=== PATIENT | female | born 1970 | race Caucasian/White ===

== ENCOUNTER 2016-09-27 11:07 | Inpatient (IN) | payer BC, MEDICARE ==
--- NOTE | ~2016-09-27 | HP ---
History And Physical [place] [id number] [place]. [address] NAME: RACHEL GORDON : 74 STATUS : ADM IN [facility]#: [id number] AGE: 46 ADM/REG DATE : 09/27/16 MR#: [id number] REPORT SERV DATE: 09/27/16 DICTATED BY: ELIDA WALLER II DATE: 09/27/16 REPORT STATUS : Draft TRANSCRIBED BY: MODL DATE: 09/27/16 DATE OF ADMISSION: 09/27/2016 PRIMARY ONCOLOGIST: Dr. Fisher. CHIEF COMPLAINT: Severe abdominal pain. 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 She started noticing a few weeks ago, pain in her right upper quadrant, though considered to be secondary to chemotherapy. Over the last week, she has had pain in her right upper quadrant as well as upper abdomen that has become more and more severe, now prompting her to come to the ER as her pain is uncontrollable. She denies any diarrhea, but has had worsening appetite, nausea, one episode of emesis a week ago, but has had minimal p.o. intake over the last week. Her abdominal pain is fairly constant and most severe in the right upper quadrant. In the ER, CT scan revealed moderate ascites throughout the abdomen and pelvis. Also findings concerning for carcinomatosis. The patient was also recently evaluated on at [facility] with similar symptoms, though had apparently complained of chest pain at that point in time, and a CTA was done without any notable abnormality. Lab workup was mostly unremarkable except for about 75 white cells in her urine, and she was given Macrobid. REVIEW OF SYSTEMS: Significant for some shortness of breath with pain and pain within deep inspiration. Anorexia, weight loss, weakness, fatigue. Negative for melena, hematochezia, cough, fevers, chills, dizziness, or blurry vision. Otherwise, 10-point review of systems is negative except for HPI. PAST MEDICAL HISTORY: 1. 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 Fisher, status post chemo and radiation. 2. Ulcerative colitis, status post colectomy and ileostomy. 3. Chronic fatigue syndrome. 4. Fibromyalgia. 5. TAA. 6. Deep venous thrombosis, on Eliquis. 7. Gastroesophageal reflux disease. 8. Chronic anemia. 9. Hypertension. 10.Primary sclerosing cholangitis. 11.Fatty liver disease. PAST SURGICAL HISTORY: Left hand reconstruction, arthroscopic knee surgery, subtotal colectomy, lumpectomy for benign findings, arthroscopic right wrist surgery, eye surgery, History And Physical [address] [address] NAME: RACHEL GORDON : 74 STATUS : ADM IN PAT#: [id number] AGE: 46 ADM/REG DATE : 09/27/16 MR#: [id number] REPORT SERV DATE: 09/27/16 DICTATED BY: ELIDA WALLER II DATE: 09/27/16 REPORT STATUS : Draft TRANSCRIBED BY: CELIA DATE: 09/27/16 colonoscopy. ALLERGIES: SULFA, SHELLFISH, IRON. FAMILY HISTORY: Significant for maternal grandmother with breast and ovarian cancer. SOCIAL HISTORY: The patient is . Lives with her . Daughter was 14. 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 Denies any alcohol, tobacco, or drug use. PHYSICAL EXAMINATION: VITAL SIGNS: Blood pressure 141/104, temperature 98.2, pulse 120, respirations 31, O2 saturation 93% on room air. GENERAL: The patient is alert and oriented x3, in no acute distress. NECK: Supple. Nontender. No lymphadenopathy or thyromegaly. HEENT: Moist mucous membranes. Pupils are equal, round, and reactive to light. Conjunctivae clear. RESPIRATORY: Lungs are clear to auscultation bilaterally. No wheezes, rhonchi, or rales. CARDIOVASCULAR: Regular rate and rhythm. No murmurs, rubs, or gallops. ABDOMEN: Mildly distended with tenderness to palpation in the right upper epigastric and left upper quadrant. Mild guarding. Normoactive bowel sounds. EXTREMITIES: No cyanosis, clubbing, or edema. SKIN: No lesions, rashes, or wounds. NEURO: No focal deficits. LABORATORY DATA: Sodium 139, potassium 3.8, chloride 101, CO2 25, BUN 6, creatinine 1.04, calcium 9.2, magnesium 1.8, total protein 6.9, albumin 2.4, T-bilirubin 0.9, alkaline phosphatase 228, ALT 16, AST 29, lipase 79. Troponin less than 0.02. WBC 9.4, hemoglobin 11.2, platelets 550. INR 1.7. Lactic 2.3. Urinalysis with small leukocyte esterase, 9 rbc's, 30 wbc's. RADIOGRAPHIC DATA: CT of the abdomen and pelvis shows moderate ascites throughout the abdomen and pelvis. There is nodularity of the peritoneal surface adjacent to the liver and the pericolic gutters. There was also nodular soft tissue thickening throughout the left lower quadrant mesentery extending into the pelvis and forming a conglomerate mass-like area in the spectral region of the rectum/mesorectal fat measuring up to 6.4 x 7.1 cm concerning for extensive carcinomatosis. Findings are new since 09/27/2015. There is also a perifissural nodule along the major fissure in the right measuring up to 5 x 7 mm. This was not present on previous exam and could possibly represent a metastatic lesion. Otherwise hepatic steatosis. ASSESSMENT AND PLAN: The patient is a 46-year-old female with, 1. Severe abdominal pain, which has been slowly progressing concerning for progression of disease. We will control with IV Dilaudid and provide supportive care. 2. Ascites possibly malignant, though the patient does have some history of fatty liver. We will plan a paracentesis on Thursday for further evaluation. 3. History of T3 N1 M0 rectal adenocarcinoma with radiographic findings concerning for extensive carcinomatosis. We will consult [facility] for further History And Physical [address] [address] NAME: RACHEL GORDON : 74 STATUS : ADM IN [facility]#: [id number] AGE: 46 ADM/REG DATE : 09/27/16 MR#: [id number] REPORT SERV DATE: 09/27/16 DICTATED BY: ELIDA WALLER II DATE: 09/27/16 REPORT STATUS : Draft TRANSCRIBED BY: MODHeber DATE: 09/27/16 recommendations. 4. Deep venous thrombosis, on Eliquis. Will hold Eliquis and start Lovenox in anticipation of procedure on Thursday. 5. Ulcerative colitis, status post ileostomy. 6. Hypertension, p.r.n. hydralazine. 7. Fibromyalgia. 8. Primary sclerosing cholangitis with mildly elevated alkaline phosphatase. We will continue to monitor. 9. Recent urinary tract infection. Prescribed Macrobid. White blood cell count on urinalysis a few days ago at [facility] was 75, currently down to 30, likely responding, so we will continue Macrobid. 10.The patient is a full code. MARIANA/CELIA Elida Waller II, MD / [id number] CC: MD Shena Mckeon II, M.D.
--- NOTE | ~2016-09-27 | DS ---
Discharge Summary [facility] [address] [place]. [address] NAME: RACHEL GORDON : 74 STATUS : DIS IN PAT#: [id number] AGE: 46 ADM/REG DATE : 09/27/16 MR#: [id number] REPORT SERV DATE: 10/07/16 DICTATED BY: JARROD JOHNSON DATE: 10/06/16 REPORT STATUS : Draft TRANSCRIBED BY: MODL DATE: 10/06/16 ADMISSION DATE: 09/27/2016 DISCHARGE DATE: 10/06/2016 CHIEF COMPLAINT ON ADMISSION: Severe abdominal pain. DISCHARGE DIAGNOSES: 1. Metastatic rectal cancer with peritoneal carcinomatosis. 2. Recurrent malignant ascites. 3. Abdominal pain. 4. Edema due to hypoalbuminemia and severe malnutrition. 5. History of deep vein thrombosis. 6. Sinus tachycardia. 7. Acute renal failure with right hydronephrosis. 8. Elevated lactate. 9. Acute renal failure. HISTORY OF PRESENT ILLNESS: Please see full H and P by Dr. Oren Villalobos for details regarding initial presentation. HOSPITAL COURSE: 1. Metastatic rectal cancer with new diagnosis of peritoneal carcinomatosis. The patient was admitted to the hospital. She was followed by Dr. Fisher who is her medical oncologist. Unfortunately, there is evidence on imaging that her cancer has progressed with peritoneal carcinomatosis. She did have ascites which was drained x2 this hospitalization. This fluid was positive for malignant cells on cytology. She will have a peritoneal catheter placed prior to discharge. She had 4.1 L of fluid removed off her abdomen on 09/29/2016, and then 3.7 removed off her abdomen on the 10/05/2016. She will be managed by hospice at discharge. The patient is adamant about going home today, and we will have hospice arranged. 2. Abdominal pain. This waxed and waned depending on the amount of fluid in her abdomen. Hopefully, this will be easier to control with a peritoneal catheter for fluid management. She will also be enrolled in hospice at discharge as mentioned above to help with pain control. 3. Lower extremity edema due to malnutrition and hypoalbuminemia. We did attempt albumin infusions with diuretics this hospitalization which were largely unsuccessful in managing her issues. 4. Deep vein thrombosis. The patient was on therapeutic anticoagulation, held for procedures; however, she can be managed with Eliquis at discharge per hospice input. 5. Sinus tachycardia due to pain. 6. Acute renal failure with right hydronephrosis. The patient has unfortunately, progression of her disease in addition to fluid accumulation in her abdomen which has caused compression of her bowel causing some elevated lactate as well as right hydronephrosis, resulting in some renal failure. This is improving after drainage of 3.7 L off her abdomen yesterday with creatinine today at 1.41, down from 1.78 yesterday. Again, she will be having a peritoneal catheter placed for fluid management Discharge Summary [place] [id number] [place]. [address] NAME: RACHEL GORDON : 74 STATUS : DIS IN PAT#: [id number] AGE: 46 ADM/REG DATE : 09/27/16 MR#: [id number] REPORT SERV DATE: 10/07/16 DICTATED BY: JARROD JOHNSON DATE: 10/06/16 REPORT STATUS : Draft TRANSCRIBED BY: MODL DATE: 10/06/16 per hospice at home. 7. Anemia. This is chronic. No acute bleeding noted. Likely related to underlying malignancy and possibly chemo. DISPOSITION: The patient will be discharged under the care of [facility] later today after peritoneal catheter placement and hospice has been arranged for home. DISCHARGE MEDICATIONS: Per hospice. PERTINENT LABORATORY DATA: White blood cell count 10.5, hemoglobin 8.4, and platelet count of 429. INR 1.1. BMP: Serum sodium 135, potassium 3.6, chloride 88, CO2 of 29, BUN 12, and creatinine 1.4. Total protein 5.5, albumin 2.8, total bilirubin 1.4. Most recent CT abdomen and pelvis with contrast. IMPRESSION: 1. Progressive peritoneal metastatic disease of the abdomen and pelvis since 09/27/2016 for metastatic colorectal cancer. 2. Npoeacymcy-tc-[id number] right lower lobe pulmonary metastases, now measures 11 x 9 mm. This nodule previously measured 6.6 x 5 mm in September. 3. Left lower lobe subsegmental atelectasis or pneumonia. 4. Moderate right hydroureteronephrosis due to extrinsic mass effect on the right distal ureter from peritoneal and pelvic metastatic disease. This is a new finding since 09/27/2016. CODE STATUS: Code status at this time is pending. Family is discussing. DISPOSITION: Home with [facility]. TIME SPENT ON DISCHARGE: Greater than 30 minutes. YURI/CELIA Jarrod Johnson MD / [id number]
[~2016-09-27 11:07] MED LIST: ACET500CAP PO; ENDOCET1 TAB PO; NATURA2 OPH; T PO
[2016-09-27 12:50] LABS: BASOPHILS 0.2 %; BASOPHILS ABSOLUTE 0.02 10/3/uL (0.0-0.16); EOSINOPHILS 1.4 %; EOSINOPHILS ABSOLUTE 0.13 10/3/uL (0.0-0.53); ER CBC TAT 0 Hrs 05 Mins; HEMOGLOBIN 11.2 g/dL (12.0-16.0); IMMATURE GRANULOCYTES 0.6 %; IMMATURE GRANULOCYTES ABSOLUTE 0.06 10/3/uL (0.0-0.11); LYMPHOCYTES ABSOLUTE 0.56 10/3/uL (0.67-4.30); MEAN CORPUS HGB CONC 32.1 g/dL (32.0-36.0); MEAN CORPUSCULAR HEMOGLOB 31.2 pg (26.0-34.0); MEAN PLATELET VOLUME 8.4 fL (9.2-13.0); MONOCYTES ABSOLUTE 0.75 10/3/uL (0.21-1.20); NEUTROPHILS 83.8 %; NEUTROPHILS ABSOLUTE 7.85 10/3/uL (2.02-8.40); RBC DISTRIBUTION WIDTH 16.6 % (12.0-16.0); RED CELL COUNT 3.59 10/6/uL (4.0-5.6); WHITE BLOOD CELLS 9.4 10/3/uL (4.5-10.5)
[2016-09-27 12:52] LABS: HEMATOCRIT 34.9 % (36.0-48.0); MANUAL DIFF NO %; MEAN CORPUSCULAR VOLUME 97.2 fL (80-100); PLATELET COUNT 550 10/3/uL (150-400)
[2016-09-27 12:54] LABS: ASCORBIC ACID (UR NOT ORDER) NEG (NEG); BILIRUBIN, URINE NEGATIVE (NEG); ER URINALYSIS TAT 0 Hrs 09 Mins; KETONE, URINE TRACE MG/DL (NEG); LEUKOCYTE ESTERASE(NOT OR SMALL (NEG); NITRITE (URINE) NEG (NEG); WBC (NOT ORDERED) (RFLEX) 30 (0-5)
[2016-09-27 13:04] LABS: INTERNATIONAL NORMAL RATI 1.7 UNITS (-); PARTIAL THROMBO TIME 61.1 SEC (22.5-37.2); PROTIME (NOT ORD) 20.1 SEC (12.0-14.5)
[2016-09-27 13:06] LABS: ALBUMIN 2.4 G/DL (3.5-5.0); ALKALINE PHOSPHATASE 228 U/L (45-117); BUN (BLOOD UREA NITROGEN) 6 MG/DL (6-23); CALCIUM, SERUM 9.2 MG/DL (8.5-10.4); CHEST PAIN PROFILE TAT 0 Hrs 21 Mins; CHLORIDE, SERUM 101 MMOL/L (96-112); CO2 (CARBON DIOXIDE) 25 MMOL/L (24-34); CREATININE 1.04 MG/DL (0.55-1.02); DIRECT BILIRUBIN 0.2 MG/DL (0.0-0.4); GFR AFRICAN AMERICAN 76 ML/MIN (>=60); GFR NON AFRICAN AMERICAN 65 ML/MIN (>=60); GLUCOSE, SERUM 95 MG/DL (60-99); INDIRECT BILIRUBIN(NOT ORDER) 0.7 MG/DL (0.1-0.9); POTASSIUM, SERUM 3.8 MMOL/L (3.5-5.3); SGOT(AST) 29 U/L (5-40); SGPT(ALT) 16 U/L (5-65); SODIUM, SERUM 139 MMOL/L (135-148); TOTAL BILIRUBIN 0.9 MG/DL (0-1.2); TOTAL PROTEIN 6.9 G/DL (6.0-8.5); TROPONIN I <0.02 NG/ML (<0.05)
[2016-09-27] MEDS ORDERED: MACROBID PO (13:43)
[2016-09-27] MEDS ORDERED: CYMBALTA30 PO (13:43)
[2016-09-27] MEDS ORDERED: ELIQUIS 5 MG TAB5 MG PO (13:43)
[2016-09-27] MEDS ORDERED: OXYCOD PO (13:44)
[2016-09-28 06:06] LABS: BASOPHILS 0.3 %; BASOPHILS ABSOLUTE 0.03 10/3/uL (0.0-0.16); EOSINOPHILS 1.3 %; EOSINOPHILS ABSOLUTE 0.11 10/3/uL (0.0-0.53); HEMATOCRIT 36.4 % (36.0-48.0); HEMOGLOBIN 11.4 g/dL (12.0-16.0); IMMATURE GRANULOCYTES ABSOLUTE 0.09 10/3/uL (0.0-0.11); LYMPHOCYTES 6.7 %; LYMPHOCYTES ABSOLUTE 0.59 10/3/uL (0.67-4.30); MEAN CORPUS HGB CONC 31.3 g/dL (32.0-36.0); MEAN CORPUSCULAR HEMOGLOB 30.9 pg (26.0-34.0); MEAN CORPUSCULAR VOLUME 98.6 fL (80-100); MEAN PLATELET VOLUME 8.8 fL (9.2-13.0); MONOCYTES 8.1 %; MONOCYTES ABSOLUTE 0.71 10/3/uL (0.21-1.20); NEUTROPHILS 82.6 %; NEUTROPHILS ABSOLUTE 7.26 10/3/uL (2.02-8.40); PLATELET COUNT 546 10/3/uL (150-400); RBC DISTRIBUTION WIDTH 16.9 % (12.0-16.0); RED CELL COUNT 3.69 10/6/uL (4.0-5.6); WHITE BLOOD CELLS 8.8 10/3/uL (4.5-10.5)
[2016-09-28 06:11] LABS: MANUAL DIFF NO %
[2016-09-28 06:19] LABS: A/G RATIO 0.5 (0.7-1.9); ALBUMIN 2.2 G/DL (3.5-5.0); ALKALINE PHOSPHATASE 221 U/L (45-117); BUN (BLOOD UREA NITROGEN) 8 MG/DL (6-23); CHLORIDE, SERUM 103 MMOL/L (96-112); CO2 (CARBON DIOXIDE) 21 MMOL/L (24-34); CREATININE 0.93 MG/DL (0.55-1.02); GFR AFRICAN AMERICAN 87 ML/MIN (>=60); GFR NON AFRICAN AMERICAN 75 ML/MIN (>=60); GLOBULIN 4.4 G/DL (2.5-4.1); GLUCOSE, SERUM 99 MG/DL (60-99); POTASSIUM, SERUM 4.2 MMOL/L (3.5-5.3); SGPT(ALT) 17 U/L (5-65); SODIUM, SERUM 137 MMOL/L (135-148); TOTAL BILIRUBIN 0.9 MG/DL (0-1.2); TOTAL PROTEIN 6.6 G/DL (6.0-8.5)
[2016-09-28 06:20] LABS: CALCIUM, SERUM 8.9 MG/DL (8.5-10.4); SGOT(AST) 30 U/L (5-40)
[2016-09-29 05:42] LABS: A/G RATIO 0.5 (0.7-1.9); ALBUMIN 2.3 G/DL (3.5-5.0); ALKALINE PHOSPHATASE 228 U/L (45-117); BUN (BLOOD UREA NITROGEN) 10 MG/DL (6-23); CALCIUM, SERUM 9.2 MG/DL (8.5-10.4); CHLORIDE, SERUM 101 MMOL/L (96-112); CO2 (CARBON DIOXIDE) 22 MMOL/L (24-34); CREATININE 1.32 MG/DL (0.55-1.02); GFR AFRICAN AMERICAN 57 ML/MIN (>=60); GFR NON AFRICAN AMERICAN 49 ML/MIN (>=60); GLOBULIN 4.8 G/DL (2.5-4.1); GLUCOSE, SERUM 106 MG/DL (60-99); POTASSIUM, SERUM 4.4 MMOL/L (3.5-5.3); SGOT(AST) 26 U/L (5-40); SGPT(ALT) 13 U/L (5-65); SODIUM, SERUM 136 MMOL/L (135-148); TOTAL BILIRUBIN 1.1 MG/DL (0-1.2); TOTAL PROTEIN 7.1 G/DL (6.0-8.5)
[2016-09-29 05:55] LABS: BASOPHILS 0.2 %; BASOPHILS ABSOLUTE 0.02 10/3/uL (0.0-0.16); EOSINOPHILS 0.7 %; EOSINOPHILS ABSOLUTE 0.07 10/3/uL (0.0-0.53); HEMATOCRIT 35.7 % (36.0-48.0); HEMOGLOBIN 10.9 g/dL (12.0-16.0); IMMATURE GRANULOCYTES 1.7 %; IMMATURE GRANULOCYTES ABSOLUTE 0.17 10/3/uL (0.0-0.11); LYMPHOCYTES 6.7 %; LYMPHOCYTES ABSOLUTE 0.69 10/3/uL (0.67-4.30); MEAN CORPUS HGB CONC 30.5 g/dL (32.0-36.0); MEAN CORPUSCULAR HEMOGLOB 30.4 pg (26.0-34.0); MEAN CORPUSCULAR VOLUME 99.4 fL (80-100); MEAN PLATELET VOLUME 8.8 fL (9.2-13.0); MONOCYTES 7.1 %; MONOCYTES ABSOLUTE 0.73 10/3/uL (0.21-1.20); NEUTROPHILS 83.6 %; NEUTROPHILS ABSOLUTE 8.59 10/3/uL (2.02-8.40); PLATELET COUNT 624 10/3/uL (150-400); RBC DISTRIBUTION WIDTH 17.3 % (12.0-16.0); RED CELL COUNT 3.59 10/6/uL (4.0-5.6); WHITE BLOOD CELLS 10.3 10/3/uL (4.5-10.5)
[2016-09-29 05:57] LABS: MANUAL DIFF NO %
[2016-09-29 06:42] LABS: INTERNATIONAL NORMAL RATI 1.2 UNITS (-)
[2016-09-29 06:43] LABS: PROTIME (NOT ORD) 14.9 SEC (12.0-14.5)
[2016-09-29 11:56] LABS: BF ALBUMIN 2.2 G/DL; LDH BODY FLUID (NOT ORD) 1602 U/L
[2016-09-29 11:59] LABS: BD FL LYMPH (NOT ORD) 4 %; BF BASO (NOT OF) 0 %; BF LARGE MONONUCLEAR 56 %; BODY FLUID EOS (NOT ORD) 0 %; BODY FLUID SEG (NOT ORD) 40 %
[2016-09-29 12:00] LABS: BD FL SOURCE (NOT ORD) PERITONEAL
[2016-09-29 12:35] LABS: BF TOTAL CELL CT (NOT ORD 3618 /MM3; BODY FLUID RBC (NOT ORD) 215217 /MM3
[2016-09-29 15:03] LABS: CEA 0.3 NG/ML
[2016-09-30 04:50] LABS: INTERNATIONAL NORMAL RATI 1.2 UNITS (-); PROTIME (NOT ORD) 15.4 SEC (12.0-14.5)
[2016-09-30 04:51] LABS: PARTIAL THROMBO TIME 44.9 SEC (22.5-37.2)
[2016-09-30 05:07] LABS: BASOPHILS 0.2 %; BASOPHILS ABSOLUTE 0.02 10/3/uL (0.0-0.16); EOSINOPHILS 1.9 %; EOSINOPHILS ABSOLUTE 0.16 10/3/uL (0.0-0.53); HEMOGLOBIN 9.7 g/dL (12.0-16.0); IMMATURE GRANULOCYTES 1.5 %; IMMATURE GRANULOCYTES ABSOLUTE 0.13 10/3/uL (0.0-0.11); LYMPHOCYTES 5.6 %; LYMPHOCYTES ABSOLUTE 0.48 10/3/uL (0.67-4.30); MEAN CORPUS HGB CONC 30.9 g/dL (32.0-36.0); MEAN CORPUSCULAR HEMOGLOB 30.4 pg (26.0-34.0); MEAN CORPUSCULAR VOLUME 98.4 fL (80-100); MEAN PLATELET VOLUME 8.6 fL (9.2-13.0); MONOCYTES 8.8 %; MONOCYTES ABSOLUTE 0.76 10/3/uL (0.21-1.20); NEUTROPHILS ABSOLUTE 7.07 10/3/uL (2.02-8.40); NUCLEATED RED BLOOD CELLS 0.2 /100WBC (0-0); PLATELET COUNT 576 10/3/uL (150-400); RBC DISTRIBUTION WIDTH 17.1 % (12.0-16.0); RED CELL COUNT 3.19 10/6/uL (4.0-5.6); WHITE BLOOD CELLS 8.6 10/3/uL (4.5-10.5)
[2016-09-30 05:08] LABS: HEMATOCRIT 31.4 % (36.0-48.0); MANUAL DIFF NO %
[2016-09-30 05:11] LABS: A/G RATIO 0.5 (0.7-1.9); ALBUMIN 1.9 G/DL (3.5-5.0); CALCIUM, SERUM 8.6 MG/DL (8.5-10.4); CHLORIDE, SERUM 104 MMOL/L (96-112); CO2 (CARBON DIOXIDE) 23 MMOL/L (24-34); CREATININE 0.98 MG/DL (0.55-1.02); DIRECT BILIRUBIN 0.1 MG/DL (0.0-0.4); GFR AFRICAN AMERICAN 81 ML/MIN (>=60); GFR NON AFRICAN AMERICAN 70 ML/MIN (>=60); GLUCOSE, SERUM 101 MG/DL (60-99); SGOT(AST) 23 U/L (5-40); SGPT(ALT) 10 U/L (5-65); SODIUM, SERUM 138 MMOL/L (135-148); TOTAL PROTEIN 5.9 G/DL (6.0-8.5)
[2016-09-30 05:18] LABS: ALKALINE PHOSPHATASE 183 U/L (45-117); BUN (BLOOD UREA NITROGEN) 6 MG/DL (6-23); INDIRECT BILIRUBIN(NOT ORDER) 0.5 MG/DL (0.1-0.9); TOTAL BILIRUBIN 0.6 MG/DL (0-1.2)
[2016-10-01 05:57] LABS: BUN (BLOOD UREA NITROGEN) 4 MG/DL (6-23); CALCIUM, SERUM 8.2 MG/DL (8.5-10.4); CHLORIDE, SERUM 105 MMOL/L (96-112); CO2 (CARBON DIOXIDE) 26 MMOL/L (24-34); CREATININE 0.87 MG/DL (0.55-1.02); GFR AFRICAN AMERICAN 94 ML/MIN (>=60); GFR NON AFRICAN AMERICAN 81 ML/MIN (>=60); GLUCOSE, SERUM 108 MG/DL (60-99); PHOSPHORUS, SERUM 1.4 MG/DL (2.5-4.5); POTASSIUM, SERUM 3.7 MMOL/L (3.5-5.3); SODIUM, SERUM 139 MMOL/L (135-148)
[2016-10-03 04:50] LABS: HEMATOCRIT 33.7 % (36.0-48.0); HEMOGLOBIN 10.4 g/dL (12.0-16.0); MANUAL DIFF YES %; MEAN CORPUS HGB CONC 30.9 g/dL (32.0-36.0); MEAN CORPUSCULAR HEMOGLOB 30.2 pg (26.0-34.0); MEAN PLATELET VOLUME 8.8 fL (9.2-13.0); PLATELET COUNT 593 10/3/uL (150-400); RBC DISTRIBUTION WIDTH 17.5 % (12.0-16.0); RED CELL COUNT 3.44 10/6/uL (4.0-5.6); WHITE BLOOD CELLS 9.5 10/3/uL (4.5-10.5)
[2016-10-03 05:05] LABS: BASOPHILS 1 %; EOSINOPHILS 1 %; LYMPHOCYTES 7 %; LYMPHOCYTES ABSOLUTE (CALC) 0.67 10/3/uL (0.67-4.30); METAMYELOCYTES 1 %; MONOCYTES 5 %; MONOCYTES ABSOLUTE (CALC) 0.48 10/3/uL (0.21-1.20); NEUTROPHILS ABSOLUTE (CALC) 8.08 10/3/uL (2.02-8.40); SEGMENTED NEUTROPHIL (0) 85 %; TOTAL NUCLEATED CELLS 100
[2016-10-03 05:06] LABS: ANISOCYTOSIS 1+ (5-10/OIF) (0-5/OIF); PLATELET ESTIMATE INC (ADEQUATE); POLYCHROMASIA 1+ (2-5/OIF) (0-1/OIF)
[2016-10-03 06:17] LABS: ALBUMIN 1.8 G/DL (3.5-5.0); BUN (BLOOD UREA NITROGEN) 4 MG/DL (6-23); CALCIUM, SERUM 8.2 MG/DL (8.5-10.4); CHLORIDE, SERUM 95 MMOL/L (96-112); CO2 (CARBON DIOXIDE) 29 MMOL/L (24-34); CREATININE 1.12 MG/DL (0.55-1.02); GFR AFRICAN AMERICAN 69 ML/MIN (>=60); GFR NON AFRICAN AMERICAN 60 ML/MIN (>=60); GLUCOSE, SERUM 112 MG/DL (60-99); PHOSPHORUS, SERUM 2.2 MG/DL (2.5-4.5); POTASSIUM, SERUM 3.3 MMOL/L (3.5-5.3); SODIUM, SERUM 140 MMOL/L (135-148)
[2016-10-04 05:03] LABS: BUN (BLOOD UREA NITROGEN) 6 MG/DL (6-23); CALCIUM, SERUM 8.1 MG/DL (8.5-10.4); CHLORIDE, SERUM 90 MMOL/L (96-112); CO2 (CARBON DIOXIDE) 35 MMOL/L (24-34); CREATININE 1.15 MG/DL (0.55-1.02); GFR AFRICAN AMERICAN 67 ML/MIN (>=60); GFR NON AFRICAN AMERICAN 58 ML/MIN (>=60); GLUCOSE, SERUM 99 MG/DL (60-99); PHOSPHORUS, SERUM 2.1 MG/DL (2.5-4.5); POTASSIUM, SERUM 3.1 MMOL/L (3.5-5.3); SODIUM, SERUM 137 MMOL/L (135-148)
[2016-10-04 23:06] LABS: BUN (BLOOD UREA NITROGEN) 9 MG/DL (6-23); CALCIUM, SERUM 8.1 MG/DL (8.5-10.4); CHLORIDE, SERUM 90 MMOL/L (96-112); CO2 (CARBON DIOXIDE) 34 MMOL/L (24-34); CREATININE 1.27 MG/DL (0.55-1.02); GFR AFRICAN AMERICAN 59 ML/MIN (>=60); GFR NON AFRICAN AMERICAN 51 ML/MIN (>=60); GLUCOSE, SERUM 107 MG/DL (60-99); POTASSIUM, SERUM 3.3 MMOL/L (3.5-5.3); SODIUM, SERUM 136 MMOL/L (135-148)
[2016-10-05 00:32] LABS: BASOPHILS 0.1 %; BASOPHILS ABSOLUTE 0.01 10/3/uL (0.0-0.16); EOSINOPHILS 0.9 %; EOSINOPHILS ABSOLUTE 0.09 10/3/uL (0.0-0.53); HEMATOCRIT 31.5 % (36.0-48.0); HEMOGLOBIN 9.6 g/dL (12.0-16.0); IMMATURE GRANULOCYTES 0.8 %; IMMATURE GRANULOCYTES ABSOLUTE 0.08 10/3/uL (0.0-0.11); LYMPHOCYTES 6.3 %; MEAN CORPUS HGB CONC 30.5 g/dL (32.0-36.0); MEAN CORPUSCULAR HEMOGLOB 29.6 pg (26.0-34.0); MEAN CORPUSCULAR VOLUME 97.2 fL (80-100); MONOCYTES 7.4 %; MONOCYTES ABSOLUTE 0.71 10/3/uL (0.21-1.20); NEUTROPHILS 84.5 %; NEUTROPHILS ABSOLUTE 8.06 10/3/uL (2.02-8.40); NUCLEATED RED BLOOD CELLS 0.9 /100WBC (0-0); PLATELET COUNT 521 10/3/uL (150-400); RBC DISTRIBUTION WIDTH 17.9 % (12.0-16.0); RED CELL COUNT 3.24 10/6/uL (4.0-5.6); WHITE BLOOD CELLS 9.6 10/3/uL (4.5-10.5)
[2016-10-05 00:40] LABS: BUN (BLOOD UREA NITROGEN) 9 MG/DL (6-23); CALCIUM, SERUM 8.2 MG/DL (8.5-10.4); CHLORIDE, SERUM 89 MMOL/L (96-112); CO2 (CARBON DIOXIDE) 36 MMOL/L (24-34); CREATININE 1.34 MG/DL (0.55-1.02); GFR AFRICAN AMERICAN 56 ML/MIN (>=60); GFR NON AFRICAN AMERICAN 48 ML/MIN (>=60); GLUCOSE, SERUM 102 MG/DL (60-99); PHOSPHORUS, SERUM 2.3 MG/DL (2.5-4.5); POTASSIUM, SERUM 3.3 MMOL/L (3.5-5.3); SODIUM, SERUM 137 MMOL/L (135-148)
[2016-10-05 00:41] LABS: ALBUMIN 3.1 G/DL (3.5-5.0)
[2016-10-05 01:04] LABS: MANUAL DIFF NO %
[2016-10-05 03:36] LABS: ASCORBIC ACID (UR NOT ORDER) NEG (NEG); BILIRUBIN, URINE NEGATIVE (NEG); KETONE, URINE NEGATIVE (NEG); LEUKOCYTE ESTERASE(NOT OR TRACE (NEG); WBC (NOT ORDERED) (RFLEX) 4 (0-5)
[2016-10-05 06:56] LABS: ALBUMIN 3.1 G/DL (3.5-5.0); BUN (BLOOD UREA NITROGEN) 9 MG/DL (6-23); CALCIUM, SERUM 8.7 MG/DL (8.5-10.4); CHLORIDE, SERUM 88 MMOL/L (96-112); CREATININE 1.43 MG/DL (0.55-1.02); GFR AFRICAN AMERICAN 51 ML/MIN (>=60); GFR NON AFRICAN AMERICAN 44 ML/MIN (>=60); GLUCOSE, SERUM 99 MG/DL (60-99); PHOSPHORUS, SERUM 2.2 MG/DL (2.5-4.5); POTASSIUM, SERUM 3.3 MMOL/L (3.5-5.3); SODIUM, SERUM 136 MMOL/L (135-148)
[2016-10-05 06:57] LABS: CO2 (CARBON DIOXIDE) 30 MMOL/L (24-34)
[2016-10-05 12:29] LABS: BUN (BLOOD UREA NITROGEN) 11 MG/DL (6-23); CALCIUM, SERUM 8.6 MG/DL (8.5-10.4); CHLORIDE, SERUM 89 MMOL/L (96-112); CO2 (CARBON DIOXIDE) 32 MMOL/L (24-34); CREATININE 1.78 MG/DL (0.55-1.02); GFR AFRICAN AMERICAN 40 ML/MIN (>=60); GFR NON AFRICAN AMERICAN 34 ML/MIN (>=60); POTASSIUM, SERUM 3.9 MMOL/L (3.5-5.3); SODIUM, SERUM 136 MMOL/L (135-148)
[2016-10-05 12:32] LABS: GLUCOSE, SERUM 125 MG/DL (60-99)
[2016-10-05 13:22] LABS: INTERNATIONAL NORMAL RATI 1.2 UNITS (-); PROTIME (NOT ORD) 14.8 SEC (12.0-14.5)
[2016-10-05 14:13] LABS: PARTIAL THROMBO TIME 39.4 SEC (22.5-37.2)
[2016-10-05 15:05] LABS: ALBUMIN 3.3 G/DL (3.5-5.0); TOTAL PROTEIN 6.6 G/DL (6.0-8.5)
[2016-10-05 18:47] LABS: BUN (BLOOD UREA NITROGEN) 11 MG/DL (6-23); CHLORIDE, SERUM 91 MMOL/L (96-112); CO2 (CARBON DIOXIDE) 31 MMOL/L (24-34); CREATININE 1.67 MG/DL (0.55-1.02); GFR AFRICAN AMERICAN 43 ML/MIN (>=60); GFR NON AFRICAN AMERICAN 37 ML/MIN (>=60); GLUCOSE, SERUM 124 MG/DL (60-99); POTASSIUM, SERUM 3.2 MMOL/L (3.5-5.3); SODIUM, SERUM 137 MMOL/L (135-148)
[2016-10-06 03:50] LABS: PLATELET COUNT 429 10/3/uL (150-400)
[2016-10-06 03:56] LABS: INTERNATIONAL NORMAL RATI 1.1 UNITS (-); PROTIME (NOT ORD) 14.5 SEC (12.0-14.5)
[2016-10-06 03:57] LABS: PARTIAL THROMBO TIME 38.1 SEC (22.5-37.2)
[2016-10-06 04:05] LABS: TOTAL PROTEIN 5.5 G/DL (6.0-8.5)
[2016-10-06 09:34] LABS: ALKALINE PHOSPHATASE 121 U/L (45-117); CALCIUM, SERUM 8.1 MG/DL (8.5-10.4); SGOT(AST) 31 U/L (5-40); SGPT(ALT) 7 U/L (5-65); TOTAL BILIRUBIN 1.4 MG/DL (0-1.2)
[2016-10-06 09:45] LABS: BUN (BLOOD UREA NITROGEN) 12 MG/DL (6-23); CHLORIDE, SERUM 88 MMOL/L (96-112); CO2 (CARBON DIOXIDE) 29 MMOL/L (24-34); CREATININE 1.41 MG/DL (0.55-1.02); GFR AFRICAN AMERICAN 52 ML/MIN (>=60); GFR NON AFRICAN AMERICAN 45 ML/MIN (>=60); POTASSIUM, SERUM 3.6 MMOL/L (3.5-5.3); SODIUM, SERUM 135 MMOL/L (135-148)
[2016-10-06 09:46] LABS: GLUCOSE, SERUM 81 MG/DL (60-99)
[2016-10-06 09:49] LABS: ALBUMIN 2.8 G/DL (3.5-5.0); GLOBULIN 2.7 G/DL (2.5-4.1)
[2016-10-06 10:02] LABS: BASOPHILS 0.2 %; BASOPHILS ABSOLUTE 0.02 10/3/uL (0.0-0.16); EOSINOPHILS 0.7 %; EOSINOPHILS ABSOLUTE 0.07 10/3/uL (0.0-0.53); HEMOGLOBIN 8.4 g/dL (12.0-16.0); IMMATURE GRANULOCYTES 0.9 %; LYMPHOCYTES ABSOLUTE 0.53 10/3/uL (0.67-4.30); MEAN CORPUS HGB CONC 31.5 g/dL (32.0-36.0); MEAN CORPUSCULAR HEMOGLOB 30.1 pg (26.0-34.0); MEAN CORPUSCULAR VOLUME 95.7 fL (80-100); MEAN PLATELET VOLUME 9.3 fL (9.2-13.0); MONOCYTES 6.8 %; MONOCYTES ABSOLUTE 0.72 10/3/uL (0.21-1.20); NEUTROPHILS 86.4 %; NUCLEATED RED BLOOD CELLS 0.6 /100WBC (0-0); RBC DISTRIBUTION WIDTH 18.4 % (12.0-16.0); RED CELL COUNT 2.79 10/6/uL (4.0-5.6); WHITE BLOOD CELLS 10.5 10/3/uL (4.5-10.5)
[2016-10-06 10:03] LABS: HEMATOCRIT 26.7 % (36.0-48.0); MANUAL DIFF NO %
[2016-10-09] MEDS ORDERED: DURA25 TOP (16:39)
== END 2016-10-06 14:53 | disposition hospice, home (50) | DRG 374 ==
LOC: ER 11:07 → 4EA 16:01
PROVIDERS: Emergency Medicine; Internal Medicine; Nurse Practitioner Family
PROC: 0W9G3ZZ Drainage of Peritoneal Cavity, Percutaneous Approach (ICD-10-PCS; principal; 2016-09-29)
PROC: 0W9G3ZX Drainage of Peritoneal Cavity, Percutaneous Approach, Diagnostic (ICD-10-PCS; 2016-10-06)
DX: C78.6 Secondary malignant neoplasm of retroperitoneum and peritoneum (principal); E43 Unspecified severe protein-calorie malnutrition; R18.0 Malignant ascites; N17.9 Acute kidney failure, unspecified; N13.30 Unspecified hydronephrosis; E87.2 Acidosis; C20 Malignant neoplasm of rectum; K51.90 Ulcerative colitis, unspecified, without complications; I10 Essential (primary) hypertension; M79.7 Fibromyalgia; Z86.718 Personal history of other venous thrombosis and embolism; Z79.01 Long term (current) use of anticoagulants; Z68.36 Body mass index [BMI] 36.0-36.9, adult
CPT/HCPCS: 49083; 49418; 71010; 74000; 74176; 74177; 76775; 80048; 80053; 80069; 80076; 81001; 82040; 82042; 82248; 82378; 83605; 83615; 83690; 83735; 84100; 84155; 84484; 84703; 85025; 85049; 85610; 85730; 87040; 87070; 87086; 87205; 88112; 88305; 88341; 88342; 89051; 93005; 96361; 96374; 96375; 99291; A9270-GY; J1170; J1940; J2405; J2550; P9047; Q9967